=== PATIENT | male | born 1965 | race Caucasian/White ===

== ENCOUNTER → 2018-04-11 | Outpatient (CLI) | payer OTHER ==
--- NOTE | 2018-04-11 12:47 | XR ---
EXAMINATION TYPE: XR thoracic spine complete DATE OF EXAM: 04/11/2018 CLINICAL HISTORY: Fall with thoracic back pain. TECHNIQUE: Frontal, lateral, and swimmer's view of thoracic spine are obtained. COMPARISON: None. FINDINGS: Thoracic spine show satisfactory alignment without evidence of acute fracture or dislocatio n. Vertebral body heights are preserved. Intervertebral disc space narrowing is seen of the mid and distal thoracic spine with small anterior osteophytes. Incidental note is made of partial visualizati on on the lateral image is incomplete visualization of the frontal image of an anterior cervical fusi on device. Visualized ribs and lungs are unremarkable. IMPRESSION: No acute fracture or malalignment is seen in the thoracic spine. 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
== END | disposition home or self-care (01) ==
LOC: RADXRMAIN 12:19
PROVIDERS: ATTEND Emergency Medicine
DX: M47.814 Spondylosis without myelopathy or radiculopathy, thoracic region (principal)
CPT/HCPCS: 72072